=== PATIENT | female | born 1985 | race Hispanic/Latino ===

== ENCOUNTER 2020-03-10 12:56 | Emergency (ER) | payer SELFPAY ==
[2020-03-10] MEDS ORDERED: DEXAMETHASONE SOD PHOSPHATE 10MG/ML 1ML VIAL ONE (14:20)
[2020-03-10] MEDS ORDERED: KETOROLAC TROMETHAMINE 30MG/ML ONE (14:20)
== END 2020-03-10 15:01 | disposition home or self-care (01) ==
LOC: EDH 12:56
DX: J02.9 Acute pharyngitis, unspecified (principal)
CPT/HCPCS: 87880; 96372 ×2; 99284; J1100; J1885